=== PATIENT | female | born 2000 ===

== ENCOUNTER 2025-10-02 17:48 | Emergency (ER) ==
[~2025-10-02] VITALS: Ht 160 cm; Wt 73.5 kg
--- NOTE | 2025-10-02 19:47 | NUR ---
ACUITY AND COMPLAINT CHANGED
--- NOTE | 2025-10-02 19:47 | NUR ---
REVIEW OF CHART AND V/S, INFORMED [employer]GE [employer]. PT BEDDED
--- NOTE | 2025-10-02 19:51 | NUR ---
PER , THEY [place], STATES ONE OF THE NEPHEWS WAS RECENTLY HOSPITALIZED WITH FEVER, UNKNOWN DIAGNOSIS. STATES PT BECAME SICK YESTERDAY 10/01/25 PT C/O BODYACHES, LOWER BACK PAIN, GBW. DENIES URINARY S/S
[2025-10-02 20:05] LABS: IMMATURE GRANULOCYTE ABSOLUTE 0.05 K/uL (0-1); NUCLEATED RED BLOOD CELLS 0.0 % (0.0-0.19); PLATELET COUNT (AUTO) 297 K/uL (130-400); RED BLOOD CELL COUNT(AUTO) 4.79 MIL/uL (4.00-5.50); RED CELL DISTRIBUTION WIDTH 13.6 % (11.0-15.5); WHITE BLOOD COUNT (AUTO) 12.3 K/uL (4.8-10.8)
[2025-10-02] MEDS: 0.9%NACL 1000ML 1,000 ML IV ONE ×2 (20:13→21:41)
[2025-10-02 20:15] LABS: RAPID GROUP A STREP negative (NEGATIVE)
[2025-10-02 20:16] LABS: CREATININE 0.7 mg/dL (0.5-1.0); GLOMERULAR FILTR. RATE CALC 122.0 mL/min (>90); GLUCOSE,RANDOM 111.0 mg/dL (70-105); SODIUM SERUM 133.0 mmol/L (136-145); UREA NITROGEN, BLOOD 11.0 mg/dL (7-18)
[2025-10-02 20:25] LABS: COVID19 (SARS ANTIGEN RAPID) PRESUMPTIVE NEGATIVE (NEGATIVE); INFLUENZA TYPE A Negative For Type A (NEGATIVE); INFLUENZA TYPE B Negative For Type B (NEGATIVE)
[2025-10-02 21:11] LABS: APPEARANCE,URINE CLEAR (CLEAR); GLUCOSE, URINE (UA) NEGATIVE (NEGATIVE); LEUKOCYTE ESTERASE ,URINE NEGATIVE Leu/uL (NEGATIVE); NITRATE,URINE NEGATIVE (NEGATIVE); OCCULT BLOOD,URINE NEGATIVE (NEGATIVE)
[2025-10-02 21:13] LABS: ADD UA MICROSCOPIC NO
--- NOTE | 2025-10-02 22:16 | HMCIMG ---
EXAM: X-Ray Chest, 1 view. CLINICAL HISTORY: Cough. COMPARISON: None. FINDINGS: The lungs show no infiltrate or other acute findings. No pleural effusion or pneumothorax. The cardiomediastinal silhouette is within normal limits. No acute osseous abnormality. IMPRESSION: No acute cardiopulmonary pathology is evident. /[place]
--- NOTE | 2025-10-02 22:32 | ERN ---
ED Note History of Present Illness Stated Complaint: FLULIKE SYMPTOMS Chief Complaint: Sepsis Time Seen by MD: 17:53 Time Seen by Midlevel: 17:53 Dictation: The patient is a 25-year-old female with no past medical history who presents to the emergency department with complaints of fever, body aches, cough, sore throat, nasal congestion onset yesterday. Patient reports that multiple family members at home are sick with similar symptoms. Allergies: Coded Allergies: No Known Allergies (Unverified Allergy, Unknown, 10/02/25) Past Medical History Past Medical History: No Pertinent History Surgical History: None LMP: Sep 26, 2025 RN Note Reviewed/Agreed w/PFSH: Yes Review of System Dictation Constitutional: Negative for and weight loss positive for fever and chills Eyes: Negative for injury, pain,redness, and discharge ENT: Negative for injury,pain or swelling positive for sore throat, nasal congestion Cardiovascular: Negative for chest pain, palpitations, and edema Respiratory: Negative for shortness of breath and wheezing, positive for cough Abdomen/GI: Negative for abdominal pain, nausea, vomiting, diarrhea, and constipation Back: Negative for injury and pain : Negative for injury, bleeding and discharge MS/Extremity: Negative for injury and deformity Skin: Negative for rash, and discoloration Neuro: Negative for headache, weakness, numbness, tingling, and seizure Psych: Negative for suicide ideation, homicidal ideation, and hallucinations Initial Vital Sign VS Vital Signs Date Time Temp Pulse Resp B/P (MAP) Pulse Ox O2 Delivery O2 Flow Rate FiO2 10/02/25 17:50 102.4 127 20 139/93 99 Room Air 10/02/25 20:05 0 21 Physical Exam Dictation Vital Signs reviewed General Appearance: Alert, oriented x 3, no acute distress, well developed, nourished. Head and Face: non-traumatic. Eyes: PERRL, pink conjunctivas, eyelid no trauma, anterior chamber with arcus senilis. Ears: Pinnas intact and no signs of trauma or erythema ear canals clear and no discharge TM no erythema Nose: No discharge, no bleeding. Oropharynx: Mouth normal, tongue pink. pharynx clear,no erythema, tonsils no exudates, no abscesses noted, mucous membrane moist Neck: Supple, non-tender, no thyromegaly, no masses, no JVD, no bruits Breast:Deferred Chest:No tenderness, no crepitus, no paradoxical movement, no retractions Lungs:Clear, well-ventilated, symmetric, no rales, no wheezing, no rhonchi, no stridor, good breath sounds bilaterally Heart: Regular rate, regular rhythm, no murmur, no gallops Vascular: no peripheral edema, Abdomen: Soft, positive bowel sounds, nondistended, no guarding, nontender, no rebound, no masses no hepatomegaly, no splenomegaly, no Jarrett's sign, no hernias. Rectal: Deferred Genital: Deferred Neurological: Normal speech, motor function intact, sensory function intact Musculoskeletal: Neck nontender, full range of motion, back nontender, full range of motion, Extremities: nontender, full range of motion Skin: Color pink, dry, no turgor, no rash, no lacerations, no abrasions, no contusions. Lymphatic: Deferred Results (Laboratory/Radiology) Laboratory/Radiology Laboratory Tests Test 10/02/25 19:58 10/02/25 19:59 10/02/25 20:59 Influenza Type A Antigen Negative For Type A Influenza Type B Antigen Negative For Type B SARS-CoV-2 Antigen (Rapid) PRESUMPTIVE NEGATIVE Group A Streptococcus Rapid negative (NEGATIVE) White Blood Count 12.3 K/uL (4.8-10.8) H Red Blood Count 4.79 MIL/uL (4.00-5.50) Hemoglobin 14.1 g/dL (12.0-16.0) Hematocrit 42.4 % (36-48) Mean Corpuscular Volume 88.5 fL (79-99) Mean Corpuscular Hemoglobin 29.4 pg (27.0-33.0) Mean Corpuscular Hemoglobin Concent 33.3 g/dL (32.0-36.0) Red Cell Distribution Width 13.6 % (11.0-15.5) Platelet Count 297 K/uL (130-400) Mean Platelet Volume 9.7 fL (7.5-10.5) Immature Granulocyte % (Auto) 0.4 % (0-1) Neutrophils (%) (Auto) 81.6 % (40.0-77.0) H Lymphocytes (%) (Auto) 4.4 % (21.0-51.0) L Monocytes (%) (Auto) 13.2 % (3.0-13.0) H Eosinophils (%) (Auto) 0.1 % (0.0-8.0) Basophils (%) (Auto) 0.3 % (0.0-5.0) Neutrophils # (Auto) 10.0 K/uL (1.8-7.7) H Lymphocytes # (Auto) 0.5 K/uL (1.0-4.8) L Monocytes # (Auto) 1.6 K/uL (0.1-1.0) H Eosinophils # (Auto) 0.01 K/uL (0.00-0.70) Basophils # (Auto) 0.04 K/uL (0.00-0.20) Absolute Immature Granulocyte (auto 0.05 K/uL (0-1) Nucleated Red Blood Cells 0.0 % (0.0-0.19) White Cell Morphology Comment See comments Sodium Level 133 mmol/L (136-145) L Potassium Level 3.6 mmol/L (3.5-5.1) Chloride Level 102 mmol/L (101-111) Carbon Dioxide Level 24 mmol/L (21-32) Blood Urea Nitrogen 11 mg/dL (7-18) Creatinine 0.7 mg/dL (0.5-1.0) Glomerular Filtration Rate Calc 122 mL/min (>90) Random Glucose 111 mg/dL (70-105) H Total Calcium 8.7 mg/dL (8.5-10.1) Urine Color LIGHT-YELLOW (YELLOW) Urine Appearance CLEAR (CLEAR) Urine pH 6.0 (5.0-8.0) Urine Specific [place] 1.025 (1.001-1.031) Urine Protein NEGATIVE mg/dL (NEGATIVE) Urine Glucose (UA) NEGATIVE mg/dL (NEGATIVE) Urine Ketones NEGATIVE mg/dL (NEGATIVE) Urine Occult Blood NEGATIVE (NEGATIVE) Urine Nitrate NEGATIVE (NEGATIVE) Urine Bilirubin NEGATIVE mg/dL (NEGATIVE) Urine Urobilinogen 0.2 mg/dL (0.2-1.0) Urine Leukocyte Esterase NEGATIVE Joel/uL Urine HCG, Qualitative NEGATIVE (NEGATIVE) REASON: cough ORDERING PHYSICIAN: ALBERT MURRAY PROCEDURE: CXR1VW - CHEST 1VW EXAM: X-Ray Chest, 1 view. CLINICAL HISTORY: Cough. COMPARISON: None. FINDINGS: The lungs show no infiltrate or other acute findings. No pleural effusion or pneumothorax. The cardiomediastinal silhouette is within normal limits. No acute osseous abnormality. IMPRESSION: No acute cardiopulmonary pathology is evident. /[place] Labs Reviewed?: Yes ED Course ED Course Orders Procedure Category Date Status Time Covid19 (Sars Antigen LAB 10/02/25 Complete Rapid) 18:11 Rapid (Group A Strep) LAB 10/02/25 Complete 18:11 Influenza Type A & B, LAB 10/02/25 Complete Rapid 18:11 Acetaminophen 500mg PHA 10/02/25 Complete Tab (Tylenol 500mg T 18:30 0.9%Nacl 1000ml (Ns PHA 10/02/25 Complete 1000ml) 18:30 ,Urine Test LAB 10/02/25 Complete 18:11 Cbc With Differential LAB 10/02/25 Complete 19:50 Basic Metabolic Panel LAB 10/02/25 Complete 19:50 Urinalysis Profile LAB 10/02/25 Complete 21:02 0.9%Nacl 1000ml (Ns PHA 10/02/25 Complete 1000ml) 21:30 Chest 1vw RAD 10/02/25 Resulted 21:15 Ibuprofen 600 Mg PHA 10/02/25 Complete Tablet (Motrin) 21:30 Current Medications Medications (Trade) Dose Ordered Sig/[place] Route PRN Reason Start Time Stop Time Status Last Admin Dose Admin Acetaminophen (TYLenol 500MG TAB) 1,000 mg ONCE ONCE PO 10/02/25 18:30 10/02/25 18:31 DC 10/02/25 20:12 Ibuprofen (moTRIN) 600 mg ONCE ONCE PO 10/02/25 21:30 10/02/25 21:31 DC 10/02/25 21:41 Sodium Chloride 1,000 ml @ 0 mls/hr ONCE ONCE IV 10/02/25 18:30 10/02/25 18:31 DC 10/02/25 20:13 Sodium Chloride 1,000 ml @ 0 mls/hr Q0M ONCE IV 10/02/25 21:30 10/02/25 21:31 DC 10/02/25 21:41 Vital Signs Date Time Temp Pulse Resp B/P (MAP) Pulse Ox O2 Delivery O2 Flow Rate FiO2 10/02/25 20:05 103.5 128 18 110/68 98 Room Air* 0 21 10/02/25 17:50 102.4 127 20 139/93 99 Room Air Medical Decision Making MDM The patient is a 25-year-old female with no past medical history who presents to the emergency department with complaints of fever, body aches, cough, sore throat, nasal congestion onset yesterday. Patient reports that multiple family members at home are sick with similar symptoms CBC showed mild leukocytosis, no anemia, chemistry showed mild hyponatremia, urinalysis was unremarkable, chest x-ray did not show any infiltrates. Patient reports feeling better after medication administration. On physical exam patient is in no acute distress, nontoxic appearance. Patient will be discharged to follow up with PCP. Differential diagnosis: Upper respiratory infection, pneumonia, sepsis, dehydration Need for hospitalization: Patient does not meet criteria for hospitalization. There are no social concerns with this patient. DX & DISP Disposition: Discharge Departure Impression: Primary Impression: Viral URI with cough Condition: Stable Additional Instructions: Your labs were unremarkable. Your chest x-ray did not show any pneumonia. Your symptoms are consistent with a upper respiratory infection. Please continue taking Tylenol ibuprofen as needed for the fevers. Follow up with the primary doctor in 1-2 days. If anything worsens please return to ER. FOLLOW-UP WITH PRIMARY CARE PROVIDER IN 1 TO 2 DAYS. TAKE MEDICATIONS DIRECTED HERE IN THE EMERGENCY ROOM. OKAY TO CONTINUE HOME MEDICATIONS UNLESS OTHERWISE DISCUSSED DURING YOUR VISIT IN THE EMERGENCY ROOM TODAY. RETURN TO YOUR NEAREST EMERGENCY ROOM IF SYMPTOMS WORSEN OR IF THERE IS NO IMPROVEMENT. CALL 911 IF YOU NEED IMMEDIATE ASSISTANCE. TAKE TYLENOL [id number] NEEDED AND IF NO CONTRAINDICATIONS ARE PRESENT. INCREASE ORAL HYDRATION. A WOUND CULTURE OR URINE CULTURE WAS ORDERED HERE IN THE EMERGENCY ROOM DEPARTMENT PLEASE FOLLOW-UP WITH PRIMARY CARE PROVIDER AND ADVISE THEM TO GET REPEAT PORTS FROM OUR FACILITY. IF YOU HAD ANY DAY WRAP/SPLINTS THAT WERE APPLIED HERE, PLEASE DO NOT REMOVE THEM UNTIL YOU SEE YOUR PRIMARY CARE OR SPECIALTY. Time of Disposition: 22:32 I have reviewed the case, and I agree with, Diagnosis and Plan ALBERT MURRAY Oct 02, 2025 22:32
== END 2025-10-02 23:24 | disposition home or self-care (01) ==
LOC: EDH 17:48
DX: J06.9 Acute upper respiratory infection, unspecified (principal); Z20.822 Contact with and (suspected) exposure to COVID-19
CPT/HCPCS: 99284; 96360; 71045; 87426; 80048; 85025; 87880; 87804; 81003; 81025; 36415; J7030